=== PATIENT | female | born 1935 | race Caucasian/White ===

== ENCOUNTER 2016-06-18 10:04 | Outpatient (CLI) | payer MEDICARE, OTHER | END 2016-06-18 10:05 | disposition home or self-care (01) | DX: M35.9 Systemic involvement of connective tissue, unspecified (principal); I77.6 Arteritis, unspecified ==

== ENCOUNTER 2016-08-27 15:11 | Emergency (ER) | payer MEDICARE, OTHER | END 2016-08-27 16:11 | disposition home or self-care (01) | DX: R47.89 Other speech disturbances (principal); T42.6X5A Adverse effect of other antiepileptic and sedative-hypnotic drugs, initial encounter; I73.81 Erythromelalgia ==

== ENCOUNTER 2016-12-14 14:41 | Outpatient (CLI) | payer MEDICARE, OTHER ==
--- NOTE | 2016-12-14 16:44 | MRI Report ---
EXAM: LEFT KNEE MRI WITHOUT CONTRAST EXAM DATE: 12/14/2016 03:00 PM. CLINICAL HISTORY: Chronic pain, getting worse. Primary osteoarthritis of left knee, left lat knee. COMPARISON: LEFT KNEE MRI 07/20/2011. TECHNIQUE: Multiplanar, multisequence T1-weighted and fluid-sensitive sequences of the knee without c ontrast. Other: None. FINDINGS: Bones: No fractures or subluxations. Tricompartmental osteoarthritis with osteophytes, quite extensiv e juxtaarticular marrow edema in the lateral tibial plateau, moderately in the lateral femoral condyl e, much worse than in 2012. No bone lesions. Articular Cartilage: Severe cartilaginous degeneration, grade 4, with large area of severe thinning a nd in some area, denudation, in the lateral femoral condyle and lateral tibial plateau, with joint sp john narrowing, much worse than in 2012. Grade 3 cartilaginous degeneration with thinning and irregula r surface in the patella showing no significant change. Medial Meniscus: The medial meniscus is intact. Lateral Meniscus: The lateral meniscus is small and degenerated with surface fraying and probable chelsey y small tears, worse than in 2012. Cruciate Ligaments: The anterior and posterior cruciate ligaments are intact. Collateral Ligaments: The medial collateral and lateral collateral ligamentous structures are intact. Tendons: The quadriceps, patellar, semimembranosus, and popliteus tendons are unremarkable. Musculature: No edema or fatty atrophy. Other: Moderate effusion with synovitis and mild lipoma arborescens. Septated lobulated popliteal cys t, about 5.6 cm in length, 2.6 x 1.5 cm in cross-section with partial rupture resulting in edema trac sly along the surface of the medial head of gastrocnemius. No loose bodies. The medial and lateral retinacula, patellofemoral ligaments and iliotibial band are intact. No bursitis. The subcutaneous ti ssues and fat pads are unremarkable. IMPRESSION: 1. The lateral meniscus is small and degenerated with surface fraying and probable very small tears, worse than in 2012. 2. Tricompartmental osteoarthritis with osteophytes, quite extensive juxtaarticular marrow edema in t he lateral tibial plateau, moderately in the lateral femoral condyle, much worse than in 2012. No fra cture. 3. Severe cartilaginous degeneration, grade 4, with large area of severe thinning and in some area, d enudation, in the lateral femoral condyle and lateral tibial plateau, with joint space narrowing, muc h worse than in 2012. Grade 3 cartilaginous degeneration with thinning and irregular surface in the p atella showing no significant change. 4. Moderate effusion with synovitis and mild lipoma arborescens. 5. Septated lobulated popliteal cyst, about 5.6 cm in length, 2.6 x 1.5 cm in cross-section with part ial rupture resulting in edema tracking along the surface of the medial head of gastrocnemius. 6. Collateral and cruciate ligaments are intact. [facility] MUSCULOSKELETAL RADIOLOGY SECTION Referring Provider Line: [phone] SITE ID: [id number]
== END 2016-12-14 14:42 | disposition home or self-care (01) ==
LOC: DI 14:41
PROVIDERS: ATTEND Internal Medicine Rheumatology
DX: M23.301 Other meniscus derangements, unspecified lateral meniscus, left knee (principal); M17.12 Unilateral primary osteoarthritis, left knee; M71.22 Synovial cyst of popliteal space [Baker], left knee

== ENCOUNTER 2017-05-15 09:34 | Outpatient (CLI) | payer MEDICARE, OTHER ==
--- NOTE | 2017-05-15 11:24 | XRAY Report ---
COMPLETE CERVICAL SPINE: 05/15/2017 CLINICAL INDICATION: Chronic neck pain. FINDINGS: AP, lateral, oblique, odontoid views of the cervical spine demonstrate mild degenerative disk and facet disease. There is degenerative anterolisthesis of C3 on C4 and C4 on C5 by approximately 2 mm. Disk space narrowing is worst at C5-C6. The prevertebral soft tissues are unremarkable. No significant osseous neural foraminal narrowing is seen. IMPRESSION: DEGENERATIVE CHANGES. NO EVIDENCE OF FRACTURE. TD: 05/15/2017 11:23
== END 2017-05-15 09:35 | disposition home or self-care (01) ==
LOC: DI.S 09:34
PROVIDERS: ATTEND Internal Medicine
DX: M47.892 Other spondylosis, cervical region (principal); M50.30 Other cervical disc degeneration, unspecified cervical region; M43.12 Spondylolisthesis, cervical region
CPT/HCPCS: 72050

== ENCOUNTER 2019-10-09 08:00 | Outpatient (CLI) | payer MEDICARE, OTHER | END 2019-10-09 23:59 | disposition home or self-care (01) | LOC: LAB 08:00 | PROVIDERS: ATTEND Emergency Medicine | DX: J06.9 Acute upper respiratory infection, unspecified (principal); Z20.828 Contact with and (suspected) exposure to other viral communicable diseases | CPT/HCPCS: 81599 ==

== ENCOUNTER 2020-02-29 11:29 | Outpatient (CLI) | payer MEDICARE, OTHER ==
--- NOTE | 2020-02-29 15:20 | XRAY Report ---
PROCEDURE: Shoulder 3 View LT INDICATIONS: PAIN OF LEFT SHOULDER JOINT TECHNIQUE: 3 views of the shoulder were acquired. COMPARISON: None. FINDINGS: Bones: No fractures or dislocations but there is mild to moderate AC joint osteoarthritis. No suspi cious bony lesions. Visualized ribs appear intact. Soft tissues: No suspicious soft tissue calcifications. IMPRESSION: Mild to moderate AC joint osteoarthritis without trauma. Reviewed by: Alfredo Dale MD on 02/29/2020 3:19 PM PST Approved by: Alfredo Dale MD on 02/29/2020 3:19 PM PST Station ID: [id number]
== END 2020-02-29 11:30 | disposition home or self-care (01) ==
LOC: DI.S 11:29
PROVIDERS: ATTEND Nurse Practitioner Family
DX: M19.012 Primary osteoarthritis, left shoulder (principal)

== ENCOUNTER 2020-03-04 14:12 | Outpatient (CLI) | payer MEDICARE, OTHER | END 2020-03-04 14:13 | disposition short-term general hospital (02) | LOC: EMS 14:12 | PROVIDERS: ATTEND Surgery | DX: R20.0 Anesthesia of skin (principal); R47.81 Slurred speech; R26.81 Unsteadiness on feet | CPT/HCPCS: A0425; A0427 ==